=== PATIENT | female | born 1935 | race Hispanic/Latino ===

== ENCOUNTER 2021-12-09 12:16 | Inpatient (IN) | payer MEDICARE ==
--- NOTE | 2021-12-09 12:35 | Emergency Department Report ---
Blank Doc - Documentation Documentation: [facility] Consult Note # Demographics Consult Type: Acute Stroke Level 2 (4.5-24 hrs) Patient Location: Emergency Room First Name: Moni Last Name: Yuri Gender: Female Facility: [facility] Time of Initial Page ( Time): 12/09/2021, 11:53 Time of Return Call ( Time): 12/09/2021, 11:53 # HPI History: left arm numbness since around 0500 Context/Pre-existing conditions: deaf # Scores Time of exam and NIHSS ( Time): 12/09/2021, 11:55 Level of Consciousness 1a: [0] = Alert; keenly responsive LOC Questions 1b: [0] = Answers both questions correctly LOC Commands 1c: [0] = Performs both tasks correctly Best Gaze 2: [0] = Normal Visual 3: [0] = No visual loss Facial Palsy 4: [0] = Normal symmetrical movements Motor Arm Left 5a: [1] = Drift Motor Arm Right 5b: [0] = No drift Motor Leg Left 6a: [1] = Drift Motor Leg Right 6b: [0] = No drift Limb Ataxia 7: [0] = Absent Sensory 8: [0] = Normal Best Language 9: [0] = No aphasia Dysarthria 10: [1] = [id number] dysarthria Extinction and Inattention 11: [0] = No abnormality NIHSS Total: 3 # Exam SBP: 176 DBP: 102 # PMH-FH-SH Past Medical History: deaf # Data Glucose: within normal limits Head CT: no bleed preliminarily reviewed by me, please refer to radiology read for official reading # Assessment Impression: Ischemic Stroke (Acute) # Plan Thrombolytic/Intervention: NOT IV Thrombolysis or IA Intervention candidate Thrombolytic Exclusion: > 4.5 hours Intraarterial Exclusion: clinically consistent with small vessel disease Blood Pressure Management: nicardipine labetolol Target Blood Pressure: SBP < 220 DBP < 120 Labs: hemoglobin A1c lipid panel Imaging: (urgency: STAT): CT Angiogram Head and CT Angiogram Neck AND call back with results if abnormal Imaging: (urgency: routine): MRI Brain without contrast Diagnostic Test: echo without bubble study Therapy/Evaluation: NPO until swallow evaluation PT/OT evaluation speech/swallow consultation Medication: aspirin 81 mg daily start statin with goal of LDL < 70 DVT Prophylaxis: SCD Other: LDL < 70 If patient has any neurological deterioration please call me back immediately permissive hypertension telemetry monitoring I have discussed my recommendations with the referring provider # [employer] Telemedicine: Interactive 2 way audio and visual telecommunication technology was utilized during this visit
--- NOTE | 2021-12-09 12:37 | Emergency Department Report ---
ED Neuro Deficit HPI - General Chief Complaint: Neuro Symptoms/Deficit Stated Complaint: STROKE Time Seen by Provider: 12/09/21 12:27 Source: EMS Mode of arrival: Stretcher Limitations: Altered Mental Status, Physical Limitation - History of Present Illness Initial Comments: 86-year-old female with a history of Mnire's disease presents to the hospital with stroke symptoms. About 5 AM patient had left-sided numbness/weakness with unsteady gait. Her baseline patient is deaf and has unsteady gait secondary to Mnire's disease. Her daughter is at the bedside assisting with past medical history however, she and her sister have been estranged from her mother for the last 40+ years and have only recently connected 3 years ago. She does state davi t she noticed some mild slurred speech today. She is expresses concern that her mom might have early dementia and might not be of the care for herself and her 9 cats alone at home. No pain reported. - Related Data Home Medications: Home Medications Medication Instructions Recorded Confirmed Last Taken No Known Home Medications [No 12/10/21 12/10/21 Unknown Reported Home Medications] Allergies/Adverse Reactions: Allergies Allergy/AdvReac Type Severity Reaction Status Date / Time No Known Allergies Allergy Unverified 12/09/21 12:22 ED Review of Systems ROS: Stated complaint: STROKE Other details as noted in HPI Comment: All other systems reviewed and negative ED Past Medical Hx - Social History Smoking Status: Never Smoker Substance Use Type: None - Medications Home Medications: Home Medications Medication Instructions Recorded Confirmed Last Taken Type No Known Home Medications [No 12/10/21 12/10/21 Unknown History Reported Home Medications] ED Neuro Physical Exam - General Limitations: Altered Mental Status, Physical Limitation Suspected Stroke: Yes - NIHSS Assessment Interval: Baseline 1a. Level of Consciousness: alert/keenly responsive 1b. LOC Questions: answers both correctly 1c. LOC Commands: performs tasks correctly 2. Best Gaze: normal 3. Visual: no visual loss 4. Facial Palsy: normal symmetrical movement 5b. Motor Arm Right: drift 5a. Motor Arm Left: no drift 6a. Motor Leg Left: no drift 6b. Motor Leg Right: drift 7. Limb Ataxia: absent 8. Sensory: normal 9. Best Language: no aphasia 10. Dysarthria: mild/moderate dysarthria 11. Extinction/Inattention: no abnormality Total Score: 3 Stroke Severity: Minor Stroke - Other Other exam information: General: No acute distress Head: Atraumatic Eyes: normal appearance ENT: Moist mucous membranes Neck: Normal appearance, no midline tenderness Chest: Clear to auscultation bilaterally CV: Regular rate and rhythm Abdomen: Soft, normal bowel sounds, nontender, nondistended, no rebound or guarding Back: Normal inspection Extremity: Normal inspection, full range of motion Neuro: Alert O x 3, as per NIH stroke scale Psych: Appropriate behavior Skin: No rash ED Course Vital Signs 12/09/21 12/09/21 12/09/21 12:59 13:00 13:15 Temperature Pulse Rate 73 Respiratory 14 Rate Blood Pressure 142/79 142/79 Blood Pressure [Left] O2 Sat by Pulse 99 99 98 Oximetry 12/09/21 12/09/21 12/09/21 13:16 13:31 13:45 Temperature Pulse Rate 72 73 Respiratory 10 L 11 L Rate Blood Pressure 145/76 145/76 Blood Pressure 142/79 [Left] O2 Sat by Pulse 100 99 100 Oximetry 12/09/21 12/09/21 12/09/21 14:01 14:15 14:21 Temperature 98.1 F Pulse Rate 71 69 68 Respiratory 13 12 14 Rate Blood Pressure 128/86 128/86 62/36 Blood Pressure 128/86 [Left] O2 Sat by Pulse 100 100 98 Oximetry 12/09/21 12/09/21 12/09/21 14:23 14:25 14:27 Temperature Pulse Rate 70 69 68 Respiratory 8 L 16 14 Rate Blood Pressure 62/36 62/36 62/36 Blood Pressure [Left] O2 Sat by Pulse 98 97 98 Oximetry 12/09/21 12/09/21 12/09/21 14:29 14:31 14:33 Temperature Pulse Rate 71 73 72 Respiratory 12 9 L 9 L Rate Blood Pressure 62/36 62/36 167/83 Blood Pressure [Left] O2 Sat by Pulse 98 99 99 Oximetry 12/09/21 12/09/21 12/09/21 14:35 14:37 14:39 Temperature Pulse Rate 70 72 72 Respiratory 9 L 10 L 11 L Rate Blood Pressure 167/83 167/83 167/83 Blood Pressure [Left] O2 Sat by Pulse 99 99 100 Oximetry 12/09/21 12/09/21 12/09/21 14:41 14:43 15:37 Temperature Pulse Rate 68 71 81 Respiratory 16 10 L 19 Rate Blood Pressure 167/83 167/83 142/85 Blood Pressure [Left] O2 Sat by Pulse 99 100 100 Oximetry 12/09/21 12/09/21 12/09/21 15:39 15:41 15:43 Temperature Pulse Rate 84 87 86 Respiratory 15 16 12 Rate Blood Pressure 142/85 142/85 142/85 Blood Pressure [Left] O2 Sat by Pulse 99 100 100 Oximetry 12/09/21 12/09/21 12/09/21 15:45 15:47 15:49 Temperature Pulse Rate 80 76 77 Respiratory 15 8 L 16 Rate Blood Pressure 142/85 137/86 137/86 Blood Pressure [Left] O2 Sat by Pulse 99 99 98 Oximetry 12/09/21 12/09/21 12/09/21 15:51 15:53 15:55 Temperature Pulse Rate 77 77 76 Respiratory 12 9 L 13 Rate Blood Pressure 137/86 137/86 137/86 Blood Pressure [Left] O2 Sat by Pulse 99 99 99 Oximetry 12/09/21 12/09/21 12/09/21 15:57 15:58 16:00 Temperature Pulse Rate 76 79 77 Respiratory 13 14 15 Rate Blood Pressure 137/86 137/86 142/85 Blood Pressure [Left] O2 Sat by Pulse 100 99 Oximetry 12/09/21 12/09/21 12/09/21 16:01 16:02 16:04 Temperature Pulse Rate 73 74 77 Respiratory 10 L 13 11 L Rate Blood Pressure 137/86 137/86 137/86 Blood Pressure [Left] O2 Sat by Pulse 100 98 96 Oximetry 12/09/21 12/09/21 12/09/21 16:06 16:08 16:10 Temperature Pulse Rate 75 75 73 Respiratory 11 L 13 11 L Rate Blood Pressure 137/86 137/86 137/86 Blood Pressure [Left] O2 Sat by Pulse 99 99 99 Oximetry 12/09/21 12/09/21 12/09/21 16:39 16:41 16:43 Temperature Pulse Rate 77 68 85 Respiratory 10 L 13 12 Rate Blood Pressure 137/86 137/86 137/86 Blood Pressure [Left] O2 Sat by Pulse 100 100 100 Oximetry 12/09/21 12/09/21 12/09/21 16:45 16:47 16:49 Temperature Pulse Rate 79 79 71 Respiratory 11 L 13 11 L Rate Blood Pressure 137/86 137/86 176/113 Blood Pressure [Left] O2 Sat by Pulse 100 100 100 Oximetry 12/09/21 12/09/21 12/09/21 16:51 16:53 16:55 Temperature Pulse Rate 67 72 63 Respiratory 16 13 17 Rate Blood Pressure 176/113 176/113 176/113 Blood Pressure [Left] O2 Sat by Pulse 100 100 100 Oximetry 12/09/21 12/09/21 12/09/21 16:57 16:59 17:01 Temperature Pulse Rate 72 65 83 Respiratory 10 L 17 10 L Rate Blood Pressure 176/113 176/113 176/113 Blood Pressure [Left] O2 Sat by Pulse 100 100 100 Oximetry 12/09/21 12/09/21 12/09/21 17:03 17:05 17:07 Temperature Pulse Rate 70 71 65 Respiratory 21 10 L 8 L Rate Blood Pressure 176/113 176/113 176/113 Blood Pressure [Left] O2 Sat by Pulse 100 100 100 Oximetry 12/09/21 12/09/21 12/09/21 17:09 17:11 17:13 Temperature Pulse Rate 72 69 75 Respiratory 14 11 L 18 Rate Blood Pressure 176/113 176/113 176/113 Blood Pressure [Left] O2 Sat by Pulse 100 100 100 Oximetry 12/09/21 12/09/21 12/09/21 17:15 17:17 17:18 Temperature Pulse Rate 73 72 66 Respiratory 10 L 17 14 Rate Blood Pressure 176/113 137/86 130/80 Blood Pressure [Left] O2 Sat by Pulse 100 99 100 Oximetry 12/09/21 12/09/21 12/09/21 17:19 17:21 17:23 Temperature Pulse Rate 71 71 75 Respiratory 16 13 14 Rate Blood Pressure 130/80 130/80 130/80 Blood Pressure [Left] O2 Sat by Pulse 100 100 100 Oximetry 12/09/21 12/09/21 12/09/21 17:25 17:27 17:29 Temperature Pulse Rate 71 65 76 Respiratory 13 13 10 L Rate Blood Pressure 130/80 130/80 130/80 Blood Pressure [Left] O2 Sat by Pulse 99 100 99 Oximetry 12/09/21 12/09/21 12/09/21 17:31 17:33 17:35 Temperature Pulse Rate 77 72 73 Respiratory 12 15 18 Rate Blood Pressure 130/80 130/80 130/80 Blood Pressure [Left] O2 Sat by Pulse 100 99 99 Oximetry 12/09/21 12/09/21 12/09/21 17:37 17:39 17:41 Temperature Pulse Rate 75 74 79 Respiratory 15 12 10 L Rate Blood Pressure 130/80 130/80 130/80 Blood Pressure [Left] O2 Sat by Pulse 100 99 99 Oximetry 12/09/21 12/09/21 12/09/21 17:43 17:45 17:47 Temperature Pulse Rate 76 68 76 Respiratory 10 L 15 14 Rate Blood Pressure 130/80 130/80 130/80 Blood Pressure [Left] O2 Sat by Pulse 99 99 99 Oximetry 12/09/21 12/09/21 17:51 18:01 Temperature Pulse Rate 80 77 Respiratory 14 14 Rate Blood Pressure 145/88 145/88 Blood Pressure [Left] O2 Sat by Pulse 99 97 Oximetry - Lab Data Result diagrams: 12/09/21 12:43 12/09/21 12:43 Lab Results 12/09/21 12/09/21 12/09/21 Range/Units 12:43 12:43 12:43 WBC 6.7 (4.5-11.0) K/mm3 RBC 4.36 (3.65-5.03) M/mm3 Hgb 14.4 H (10.1-14.3) gm/dl Hct 41.0 (30.3-42.9) % MCV 94 (79-97) fl MCH 33 H (28-32) pg MCHC 35 H (30-34) % RDW 13.8 (13.2-15.2) % Plt Count 238 (140-440) K/mm3 Lymph % (Auto) 19.1 (13.4-35.0) % [place] % (Auto) 9.6 H (0.0-7.3) % Eos % (Auto) 1.0 (0.0-4.3) % Baso % (Auto) 0.6 (0.0-1.8) % Lymph # (Auto) 1.3 (1.2-5.4) K/mm3 [place] # (Auto) 0.6 (0.0-0.8) K/mm3 Eos # (Auto) 0.1 (0.0-0.4) K/mm3 Baso # (Auto) 0.0 (0.0-0.1) K/mm3 Seg Neutrophils % 69.7 (40.0-70.0) % Seg Neutrophils # 4.7 (1.8-7.7) K/mm3 PT 13.8 (12.2-14.9) Sec. INR 0.96 (0.87-1.13) APTT 29.6 (24.2-36.6) Sec. Thrombin Time 17.3 (15.1-19.6) Sec. Sodium 143 (137-145) mmol/L Potassium 3.1 L (3.6-5.0) mmol/L Chloride 108.2 H (98-107) mmol/L Carbon Dioxide 23 (22-30) mmol/L Anion Gap 15 mmol/L BUN 15 (7-17) mg/dL Creatinine 0.6 (0.6-1.2) mg/dL Estimated GFR > 60 ml/min BUN/Creatinine Ratio 25 % Glucose 92 (65-100) mg/dL Calcium 9.0 (8.4-10.2) mg/dL Total Bilirubin 0.40 (0.1-1.2) mg/dL AST 13 (5-40) units/L ALT 8 (7-56) units/L Alkaline Phosphatase 78 (35-129) units/L Total Creatine Kinase 53 (30-135) units/L CK-MB (CK-2) 3.4 (0.0-4.0) ng/mL CK-MB (CK-2) Rel Index 6.4 H (0-4) Troponin T < 0.010 (0.00-0.029) ng/mL Total Protein 6.3 (6.3-8.2) g/dL Albumin 4.1 (3.9-5) g/dL Albumin/Globulin Ratio 1.9 % Urine Color (Yellow) Urine Turbidity (Clear) Urine pH (5.0-7.0) Ur Specific [place] (1.003-1.030) Urine Protein (Negative) mg/dL Urine Glucose (UA) (Negative) mg/dL Urine Ketones (Negative) mg/dL Urine Blood (Negative) Urine Nitrite (Negative) Ur Reducing Substances Urine Bilirubin (Negative) Urine Ictotest Urine Urobilinogen (<2.0) mg/dL Ur Leukocyte Esterase (Negative) Urine WBC (Auto) (0.0-6.0) /HPF Urine RBC (Auto) (0.0-6.0) /HPF 07/08/22 Range/Units 13:54 WBC (4.5-11.0) K/mm3 RBC (3.65-5.03) M/mm3 Hgb (10.1-14.3) gm/dl Hct (30.3-42.9) % MCV (79-97) fl MCH (28-32) pg MCHC (30-34) % RDW (13.2-15.2) % Plt Count (140-440) K/mm3 Lymph % (Auto) (13.4-35.0) % [place] % (Auto) (0.0-7.3) % Eos % (Auto) (0.0-4.3) % Baso % (Auto) (0.0-1.8) % Lymph # (Auto) (1.2-5.4) K/mm3 [place] # (Auto) (0.0-0.8) K/mm3 Eos # (Auto) (0.0-0.4) K/mm3 Baso # (Auto) (0.0-0.1) K/mm3 Seg Neutrophils % (40.0-70.0) % Seg Neutrophils # (1.8-7.7) K/mm3 PT (12.2-14.9) Sec. INR (0.87-1.13) APTT (24.2-36.6) Sec. Thrombin Time (15.1-19.6) Sec. Sodium (137-145) mmol/L Potassium (3.6-5.0) mmol/L Chloride (98-107) mmol/L Carbon Dioxide (22-30) mmol/L Anion Gap mmol/L BUN (7-17) mg/dL Creatinine (0.6-1.2) mg/dL Estimated GFR ml/min BUN/Creatinine Ratio % Glucose (65-100) mg/dL Calcium (8.4-10.2) mg/dL Total Bilirubin (0.1-1.2) mg/dL AST (5-40) units/L ALT (7-56) units/L Alkaline Phosphatase (35-129) units/L Total Creatine Kinase (30-135) units/L CK-MB (CK-2) (0.0-4.0) ng/mL CK-MB (CK-2) Rel Index (0-4) Troponin T (0.00-0.029) ng/mL Total Protein (6.3-8.2) g/dL Albumin (3.9-5) g/dL Albumin/Globulin Ratio % Urine Color Yellow (Yellow) Urine Turbidity Clear (Clear) Urine pH 8.0 H (5.0-7.0) Ur Specific [place] 1.005 (1.003-1.030) Urine Protein <15 mg/dl (Negative) mg/dL Urine Glucose (UA) Negative (Negative) mg/dL Urine Ketones Negative (Negative) mg/dL Urine Blood Trace (Negative) Urine Nitrite Negative (Negative) Ur Reducing Substances Not Reportable Urine Bilirubin Negative (Negative) Urine Ictotest Not Reportable Urine Urobilinogen < 2.0 (<2.0) mg/dL Ur Leukocyte Esterase Negative (Negative) Urine WBC (Auto) < 1.0 (0.0-6.0) /HPF Urine RBC (Auto) < 1.0 (0.0-6.0) /HPF - EKG Data -: EKG Interpreted by Pr EKG shows normal: sinus rhythm, ST-T waves (No STEMI) Rate: normal - Radiology Data Radiology results: report reviewed CT head/brain wo con INDICATION / CLINICAL INFORMATION: 86 years Female; CODE STOKE [id number], AMS. TECHNIQUE: Routine CT head without contrast. All CT scans at this location are performed using CT dose reduction for ALARA by means of automated exposure control. COMPARISON: The study is compared to previous CT of 02/08/2018. FINDINGS: BRAIN / INTRACRANIAL CONTENTS: There is extensive cerebral white matter disease most consistent with microvascular angiopathy at. There is moderate cerebral atrophy with associated prominence of the ventricular system. There is no clear CT evidence of acute intracranial hemorrhage or significant mass effect. ORBITS: No significant abnormality of visualized orbits. SINUSES / MASTOIDS: This mild mucosal thickening along the inferior left maxillary sinus. 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 CRANIOCERVICAL JUNCTION: No significant abnormality. ADDITIONAL FINDINGS: None. IMPRESSION: 1. There is extensive microvascular angiopathy and moderate cerebral atrophy as described without CT evidence of acute intracranial hemorrhage. CT angio neck INDICATION / CLINICAL INFORMATION: 86 years Female; CODE STOKE [id number] AMS, 100ML OF OMIN[place]QUE 350 GIVEN. TECHNIQUE: Thin cut axial images obtained through the head during IV bolus contrast administration. Sagittal, coronal, and 3 plane MIP reconstructions performed by the technologist. NASCET type criteria used evaluate stenoses. All CT scans at this location are performed using CT dose reduction for ALARA by means of automated exposure control. COMPARISON: None available. FINDINGS: CAROTID ARTERIES: There is irregular calcified plaque involving proximal right ICA.. The motion and beam hardening degrade the image quality at. However, there appears be mild approximately 20% stenosis along the distal right carotid bulb. There are foci of atherosclerotic calcification involving proximal left ICA without significant stenosis. The common carotid arteries appear unremarkable. VERTEBRAL ARTERIES: There is a focus of calcification adjacent to the origin of the right vertebral artery. However, the vertebral arteries demonstrate appropriate caliber bilaterally without significant focal narrowing at. ARCH: There is atherosclerotic calcification involving aortic arch. However, there is no significant narrowing of the origins of the arch vessels at. ADDITIONAL FINDINGS: Remainder of the surrounding soft tissues are grossly normal. IMPRESSION: There is atherosclerotic calcification involving the proximal ICAs with mild, approximately 20% narrowing of the distal right carotid bulb as detailed above. cta head report reviewed - Medical Decision Making 86-year-old female who received code stroke assessment by neurologist for stroke symptoms. Patient have left-sided weakness/numbness since 5 AM. Outside of window for tPA. Imaging test obtained. No signs of hemorrhage or large vessel occlusion. Mild hypokalemia noted patient will be admitted to the hospitalist. Case discussed with Dr. Mena - Thrombolytic Inclusion/Exclusion Thrombolytic Exclusion Criteria: Symptom Onset > 3 Hours Critical Care Time: No Critical care attestation.: If time is entered above; I have spent that time in minutes in the direct care of this critically ill patient, excluding procedure time. ED Disposition Clinical Impression: Left arm numbness, Left-sided weakness, Deaf, History of Meniere's disease, Slurred speech Disposition: ADMITTED INPATIENT Is pt being admited?: Yes Does the pt Need Aspirin: No Condition: Stable Time of Disposition: 15:24
[2021-12-09 13:53] LABS: Basophils % (Auto) 0.6 % (0.0-1.8); Eosinophils # (Auto) 0.1 K/mm3 (0.0-0.4); Hemoglobin 14.4 gm/dl (10.1-14.3); Lymphocytes # (Auto) 1.3 K/mm3 (1.2-5.4); Lymphocytes % (Auto) 19.1 % (13.4-35.0); Mean Corpuscular HGB Conc 35 % (30-34); Mean Corpuscular Volume 94 fl (79-97); Monocytes # (Auto) 0.6 K/mm3 (0.0-0.8); Monocytes % (Auto) 9.6 % (0.0-7.3); Platelet Count 238 K/mm3 (140-440); Red Blood Count 4.36 M/mm3 (3.65-5.03); Red Cell Distribution Width 13.8 % (13.2-15.2)
--- NOTE | 2021-12-09 14:02 | Cat Scan Report ---
CT head/brain wo con INDICATION / CLINICAL INFORMATION: 86 years Female; CODE PRISCILLA [id number], AMS. TECHNIQUE: Routine CT head without contrast. All CT scans at this location are performed using CT dos e reduction for ALARA by means of automated exposure control. COMPARISON: The study is compared to previous CT of 02/08/2018. FINDINGS: BRAIN / INTRACRANIAL CONTENTS: There is extensive cerebral white matter disease most consistent with microvascular angiopathy at. There is moderate cerebral atrophy with associated prominence of the ronnie tricular system. There is no clear CT evidence of acute intracranial hemorrhage or significant mass e ffect. ORBITS: No significant abnormality of visualized orbits. SINUSES / MASTOIDS: This mild mucosal thickening along the inferior left maxillary sinus. There is co ntinued bony lesion along the nasal septum measuring approximately 7 mm transversely which is unchang ed from 02/08/2018 and indicative of osteoma. CRANIOCERVICAL JUNCTION: No significant abnormality. ADDITIONAL FINDINGS: None. IMPRESSION: 1. There is extensive microvascular angiopathy and moderate cerebral atrophy as described without CT evidence of acute intracranial hemorrhage. The study was specified as code stroke and called emergently to Dr. Giordano in the ER at 12:54 PM [facility] standard time. Signer Name: Jose Camacho MD Signed: 12/09/2021 1:58 PM Workstation Name: [id number]
[2021-12-09 14:07] LABS: INR 0.96 (0.87-1.13)
--- NOTE | 2021-12-09 14:07 | Cat Scan Report ---
CT angio neck INDICATION / CLINICAL INFORMATION: 86 years Female; CODE PRISCILLA [id number] AMS, 100ML OF OMIN[place] 350 GIVEN. TECHNIQUE: Thin cut axial images obtained through the head during IV bolus contrast administration. S agittal, coronal, and 3 plane MIP reconstructions performed by the technologist. NASCET type criteria used evaluate stenoses. All CT scans at this location are performed using CT dose reduction for ALAR A by means of automated exposure control. COMPARISON: None available. FINDINGS: CAROTID ARTERIES: There is irregular calcified plaque involving proximal right ICA.. The motion and b eam hardening degrade the image quality at. However, there appears be mild approximately 20% stenosis along the distal right carotid bulb. There are foci of atherosclerotic calcification involving proximal left ICA without significant steno sis. The common carotid arteries appear unremarkable. VERTEBRAL ARTERIES: There is a focus of calcification adjacent to the origin of the right vertebral a rtery. However, the vertebral arteries demonstrate appropriate caliber bilaterally without significan t focal narrowing at. ARCH: There is atherosclerotic calcification involving aortic arch. However, there is no significant narrowing of the origins of the arch vessels at. ADDITIONAL FINDINGS: Remainder of the surrounding soft tissues are grossly normal. IMPRESSION: There is atherosclerotic calcification involving the proximal ICAs with mild, approximately 20% narro wing of the distal right carotid bulb as detailed above. Signer Name: Jose Camacho MD Signed: 12/09/2021 2:03 PM Workstation Name: [id number]
[2021-12-09 14:08] LABS: Partial Thromboplastin Time 29.6 Sec. (24.2-36.6); Thrombin Time 17.3 Sec. (15.1-19.6)
[2021-12-09 14:17] LABS: Creatine Kinase MB 3.4 ng/mL (0.0-4.0)
[2021-12-09 14:18] LABS: Alanine Aminotransferase 8 units/L (7-56); Albumin 4.1 g/dL (3.9-5); Blood Urea Nitrogen 15 mg/dL (7-17); Hemolysis Index 4
[2021-12-09 14:49] LABS: BUN/Creatinine Ratio 25
--- NOTE | 2021-12-09 15:21 | Cat Scan Report ---
CTA HEAD WITH CONTRAST HISTORY: Stroke COMPARISON: None. TECHNIQUE: Routine non-contrast CT Head, CTA of the head and post-contrast CT Head are performed. 3-D /MIP reformats postprocessed. All CT scans at this location are performed using CT dose reduction for ALARA by means of automated exposure control CONTRAST: 100 ml of Omnipaque 350 FINDINGS: CTA Head: Intracranial vertebral arteries: No significant abnormality. Basilar artery: No significant abnormality. Posterior cerebral arteries: Minimal narrowing at the right P2 segment; left posterior cerebral arter y normal Intracranial internal carotid arteries: No significant abnormality. Anterior cerebral arteries: No significant abnormality. Middle cerebral arteries: No significant abnormality. Dural venous sinuses:Not optimally opacified. No significant abnormality. Additional findings: None. IMPRESSION: 1. No significant abnormality. Signer Name: Gregg Murdock MD Signed: 12/09/2021 3:16 PM Workstation Name: [email or web address]
[2021-12-09] MEDS ORDERED: ONDANSETRON 4 MG/2 ML INJ IV PRN (15:25)
[2021-12-09] MEDS ORDERED: PROMETHAZINE 25 MG RECT SUPP PR PRN (15:25)
[2021-12-09] MEDS ORDERED: ACETAMINOPHEN 325 MG TAB PO PRN (15:25)
[2021-12-09] MEDS ORDERED: MAGNESIUM HYDROXIDE (MOM) ORAL LIQD UDC PO PRN (15:25)
[2021-12-09] MEDS ORDERED: METOCLOPRAMIDE 10 MG TAB PO PRN (15:25)
[2021-12-09] MEDS ORDERED: oxyCODONE /ACETAMINOPHEN 5-325MG TAB PO PRN (15:25)
[2021-12-09] MEDS ORDERED: HYDROmorphone 0.5 MG/0.5 ML INJ IV PRN (15:25)
[2021-12-09] MEDS ORDERED: ALBUTEROL 2.5 MG/3 ML NEBU IH PRN (15:25)
--- NOTE | 2021-12-09 15:25 | History and Physical Report ---
History of Present Illness Chief complaint: Her speech is slurred History of present illness: 86 YO Female with Vascular Dementia, Cerebral Atherosclerosis, Mnire's disease, Deafness presents to ED for evaluation. Patient is confused with diminished cognition at the time my evaluation is unable to provide detailed history. Patient is provided by EMS staff, ED staff, as well as patient daughter was at bedside and interview. As per daughter the patient was found to have slurred speech and confusion today. EMS was notified and upon arrival the patient was found to be in distress with a focal neurologic deficit. A code stroke was called and the patient was transported to [facility] for further care and evaluation of the aforementioned symptoms. The patient was seen and evaluated in the emergency department. All lab and imaging studies reviewed. Patient found to have clinical symptoms consistent with CVA. The patient was admitted to medical floor due to increased risk of medical decompensation and for medical stabilization. Patient initiated on CVA protocol. No reports of fever, chills, chest pain, palpitation, productive cough, skin rash, recent contact, no supportive COVID-19. No prior admission for review. No medication listed at time of admission for reconciliation. Advanced care planning conducted in ED. patient has diminished cognition at time of evaluation but has a positive gag reflex and is able to protect her airway without difficulty. Past History Past Medical History: other (See HPI) Past Surgical History: No surgical history, Other (Reviewed) Social history: . denies: smoking, alcohol abuse Family history: no significant family history, other (Reviewed) Medications and Allergies Allergies Allergy/AdvReac Type Severity Reaction Status Date / Time No Known Allergies Allergy Unverified 12/09/21 12:22 Review of Systems ROS unobtainable: due to mental status Exam - Constitutional Vitals: Temp Pulse Resp BP Pulse Ox 98.1 F 71 10 L 167/83 100 12/09/21 14:21 12/09/21 14:43 12/09/21 14:43 12/09/21 14:43 12/09/21 14:43 General appearance: Present: mild distress - EENT Eyes: Present: PERRL ENT: clear oral mucosa, hearing decreased - Neck Neck: Present: supple, normal ROM - Respiratory Respiratory effort: normal Respiratory: bilateral: CTA - Cardiovascular Rhythm: regular Heart Sounds: Present: S1 & S2 - Extremities Extremities: pulses symmetrical, No edema Peripheral Pulses: within normal limits - Abdominal General gastrointestinal: Present: soft, non-tender, non-distended - Integumentary Integumentary: Present: clear, dry - Musculoskeletal Musculoskeletal: generalized weakness - Psychiatric Psychiatric: no appropriate mood/affect, no intact judgment & insight, no memory intact - Neurologic Neurologic: CNII-XII intact, no focal deficits, moves all extremities, no gait normal HEART Score - HEART Score Troponin: Troponin T < 0.010 ng/mL (0.00-0.029) 12/09/21 12:43 Results - Labs CBC & Chem 7: 12/09/21 12:43 12/09/21 12:43 Labs: Abnormal lab results 12/09/21 12/09/21 Range/Units 12:43 12:43 Hgb 14.4 H (10.1-14.3) gm/dl MCH 33 H (28-32) pg MCHC 35 H (30-34) % [place] % (Auto) 9.6 H (0.0-7.3) % Potassium 3.1 L (3.6-5.0) mmol/L Chloride 108.2 H (98-107) mmol/L CK-MB (CK-2) Rel Index 6.4 H (0-4) Assessment and Plan - Patient Problems (1) CVA (cerebral vascular accident) Current Visit: No Status: Acute Qualifiers: Precerebral and cerebral artery: posterior cerebral artery Plan to address problem: CVA protocol: CT head, neuro check, seizure precautions, physical therapy consulted, Occupational Therapy consulted, speech therapy consulted on antiplatelet therapy, statin therapy, lipid panel, telemetry neurology consulted. Echocardiogram, carotid Doppler. (2) Debility Current Visit: Yes Status: Acute Plan to address problem: Physical therapy consulted. (3) History of Meniere's disease Current Visit: No Status: Acute Plan to address problem: Continue medical management, supportive care. Outpatient neurology follow-up. (4) DVT prophylaxis Current Visit: No Status: Acute Plan to address problem: SCD to bilateral lower extremities while in bed (5) Advance care planning Current Visit: Yes Status: Acute Plan to address problem: Disease education conducted, care plan discussed, diagnoses discussed, prognosis discussed, patient is full code. Patient family knowledges understanding and agreement with care plan, +30 minutes. (6) Preventative health care Current Visit: Yes Status: Acute Plan to address problem: Home safety discussed, patient family instructed to follow-up with primary care physician regarding all age and risk factor appropriate screening test. +30 minutes.
[2021-12-09 15:29] LABS: RBC,Urine < 1.0 /HPF (0.0-6.0); WBC,Urine < 1.0 /HPF (0.0-6.0)
[2021-12-09 16:25] LABS: Bilirubin,Urine Negative (Negative); Blood,Urine Trace (Negative); Color,Urine Yellow (Yellow)
[2021-12-09 16:26] LABS: Protein,Urine <15 mg/dL mg/dL (Negative); Urobilinogen,Urine < 2.0 mg/dL (<2.0)
--- NOTE | 2021-12-09 16:57 | Vascular Lab Report ---
DUPLEX DOPPLER ULTRASOUND CAROTID, BILATERAL INDICATION / CLINICAL INFORMATION: stroke. COMPARISON: None available. FINDINGS: RIGHT CAROTID: [id number] plaque - PLAQUE ESTIMATE (%): < 50% - CCA velocity: 62 cm/sec. - ICA peak systolic velocity: 99 cm/sec. - ICA/CCA PSV Ratio: 1.6 Right Vertebral Artery: Antegrade flow. LEFT CAROTID: Mild plaque - PLAQUE ESTIMATE: < 50% - CCA velocity: 60 cm/sec. - ICA peak systolic velocity: 86 cm/sec. - ICA/CCA PSV Ratio: 1.4 Left Vertebral Artery: Antegrade flow. IMPRESSION: 1. Right Internal Carotid Artery: Less than 50% diameter stenosis. 2. Left Internal Carotid Artery: Less than 50% diameter stenosis. Calcified and noncalcified plaque in bilateral carotid arteries Velocity criteria are extrapolated from diameter data as defined by the Society of Radiologists in Ul trasound Consensus Conference, Radiology 2003; 229;340-346. NO STENOSIS (NORMAL) * Plaque = none; ICA PSV < 125 cm/sec; ICA/CCA PSV Ratio < 2.0 <50% STENOSIS * Plaque < 50%; ICA PSV < 125 cm/sec; ICA/CCA PSV Ratio < 2.0 50-69% STENOSIS * Plaque > 50%; ICA PSV = 125-230 cm/sec; ICA/CCA PSV Ratio = 2.0-4.0 >70% BUT <100% STENOSIS * Plaque > 50%; ICA PSV > 230 cm/sec; ICA/CCA PSV Ratio > 4.0 NEAR OCCLUSION * Plaque = visible lumen; ICA PSV = high/low/none; ICA/CCA PSV Ratio = variable TOTAL OCCLUSION * Plaque = no lumen; ICA PSV = none; ICA/CCA PSV Ratio = N/A Signer Name: Thomas Iglesias MD Signed: 12/09/2021 4:52 PM Workstation Name: [id number]
[2021-12-10] MEDS ORDERED: hydrALAZINE 20 MG/1 ML INJ IV ONE (03:47)
--- NOTE | 2021-12-10 04:26 | Cat Scan Report ---
NONENHANCED CT SCAN OF THE HEAD: INDICATION / CLINICAL INFORMATION: 86 years Female; s/p fall r/o bleed. TECHNIQUE: Routine CT head without contrast. All CT scans at this location are performed using CT dos e reduction for ALARA by means of automated exposure control. COMPARISON: CT scan of the head from 12/09/2021 12:28 PM FINDINGS: BRAIN / INTRACRANIAL CONTENTS: No intracerebral hemorrhage or stroke mimics; no intracranial sequela from the trauma; no scalp hematoma; no fluid level in the paranasal sinuses No acute hemorrhage, mass effect, midline shift, hydrocephalus, or acute, large territorial infarct. No chronic infarct or focal atrophy. Normal brain volume and ventricular/sulcal size for age. Conflu ent periventricular low-attenuation areas due to chronic small vessel disease; unchanged CRANIOCERVICAL JUNCTION: No significant abnormality. ORBITS: No significant abnormality of visualized orbits. SINUSES / MASTOIDS: No significant abnormality of the visualized paranasal sinuses or mastoid air brook ls. 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 IMPRESSION: Intracerebral hemorrhage or stroke mimics No intracranial sequela from the trauma No acute parenchymal lesion since the recent CT scan Signer Name: Gregg Murdock MD Signed: 12/10/2021 4:21 AM Workstation Name: [id number]
[2021-12-10 06:29] LABS: Chol/HDL Ratio 3.56 %
[2021-12-10] MEDS: ASPIRIN 325 MG TAB PO SCH (10:45)
--- NOTE | 2021-12-10 13:28 | Progress Note ---
Assessment and Plan Assessment and plan: #CVA (cerebral vascular accident) vs TIA rule out -initial CT head negative; repeat CT head negative -CTA of neck negative; CTA of head shows athlerosclerosis -MRI head, TTE, and carotid doppler pending -patient with no significant medical issues; noted to have elevated BP will star t HCTZ 12.5mg qday -continue ASA + statin -continue neuro checks -PT/OT evaluation pending #Debility -Physical therapy consulted -Family plans for the patient to move in with them at discharge for closer observation #History of Meniere's disease -not in exacerbation, supportive care -patient with deafness, but able to read lips and communicate through writing -Outpatient neurology follow-up #Advanced care planning -Disease education conducted, care plan discussed, diagnoses discussed, prognosis discussed, patient is full code. Patient family knowledges understanding and agreement with care plan, +30 minutes. History Interval history: Patient got out of the bed and was found on the floor this morning by family. Repeat CT head was negative for acute findings. Communicated with patient via whiteboard and through daughter at bedside. Patient currently has no symptoms and has had improvement in her left hand strength. Hospitalist Physical - Physical exam Narrative exam: GENERAL: Well-developed well-nourished. In no acute distress. HEENT: Normocephalic. Atraumatic. NECK: Supple. CHEST/LUNGS: CTAB on room air HEART/CARDIOVASCULAR: RRR. No murmur, rubs or gallops appreciated. ABDOMEN: +BS. NT/ND. SKIN: No rashes noted. NEURO: No focal motor deficit. Follows all commands. MUSCULOSKELETAL: No joint effusion EXTREMITIES: No cyanosis, clubbing or edema. PSYCH: Cooperative. - Constitutional Vitals: Temp Pulse Resp BP Pulse Ox 98.0 F 81 16 116/82 98 12/10/21 11:56 12/10/21 11:56 12/10/21 11:56 12/10/21 11:56 12/10/21 11:56 General appearance: Present: mild distress HEART Score - HEART Score Troponin: Troponin T < 0.010 ng/mL (0.00-0.029) 12/09/21 12:43 Results - Labs CBC & Chem 7: 12/09/21 12:43 12/09/21 12:43 Labs: Laboratory Last Values WBC 6.7 K/mm3 (4.5-11.0) 12/09/21 12:43 RBC 4.36 M/mm3 (3.65-5.03) 12/09/21 12:43 Hgb 14.4 gm/dl (10.1-14.3) H 12/09/21 12:43 Hct 41.0 % (30.3-42.9) 12/09/21 12:43 MCV 94 fl (79-97) 12/09/21 12:43 MCH 33 pg (28-32) H 12/09/21 12:43 MCHC 35 % (30-34) H 12/09/21 12:43 RDW 13.8 % (13.2-15.2) 12/09/21 12:43 Plt Count 238 K/mm3 (140-440) 12/09/21 12:43 Lymph % (Auto) 19.1 % (13.4-35.0) 12/09/21 12:43 [place] % (Auto) 9.6 % (0.0-7.3) H 12/09/21 12:43 Eos % (Auto) 1.0 % (0.0-4.3) 12/09/21 12:43 Baso % (Auto) 0.6 % (0.0-1.8) 12/09/21 12:43 Lymph # (Auto) 1.3 K/mm3 (1.2-5.4) 12/09/21 12:43 [place] # (Auto) 0.6 K/mm3 (0.0-0.8) 12/09/21 12:43 Eos # (Auto) 0.1 K/mm3 (0.0-0.4) 12/09/21 12:43 Baso # (Auto) 0.0 K/mm3 (0.0-0.1) 12/09/21 12:43 Seg Neutrophils % 69.7 % (40.0-70.0) 12/09/21 12:43 Seg Neutrophils # 4.7 K/mm3 (1.8-7.7) 12/09/21 12:43 PT 13.8 Sec. (12.2-14.9) 12/09/21 12:43 INR 0.96 (0.87-1.13) 12/09/21 12:43 APTT 29.6 Sec. (24.2-36.6) 12/09/21 12:43 Thrombin Time 17.3 Sec. (15.1-19.6) 12/09/21 12:43 Sodium 143 mmol/L (137-145) 12/09/21 12:43 Potassium 3.1 mmol/L (3.6-5.0) L 12/09/21 12:43 Chloride 108.2 mmol/L (98-107) H 12/09/21 12:43 Carbon Dioxide 23 mmol/L (22-30) 12/09/21 12:43 Anion Gap 15 mmol/L 12/09/21 12:43 BUN 15 mg/dL (7-17) 12/09/21 12:43 Creatinine 0.6 mg/dL (0.6-1.2) 12/09/21 12:43 Estimated GFR > 60 ml/min 12/09/21 12:43 BUN/Creatinine Ratio 25 % 12/09/21 12:43 Glucose 92 mg/dL (65-100) 12/09/21 12:43 Calcium 9.0 mg/dL (8.4-10.2) 12/09/21 12:43 Total Bilirubin 0.40 mg/dL (0.1-1.2) 12/09/21 12:43 AST 13 units/L (5-40) 12/09/21 12:43 ALT 8 units/L (7-56) 12/09/21 12:43 Alkaline Phosphatase 78 units/L (35-129) 12/09/21 12:43 Total Creatine Kinase 53 units/L (30-135) 12/09/21 12:43 CK-MB (CK-2) 3.4 ng/mL (0.0-4.0) 12/09/21 12:43 CK-MB (CK-2) Rel Index 6.4 (0-4) H 12/09/21 12:43 Troponin T < 0.010 ng/mL (0.00-0.029) 12/09/21 12:43 Total Protein 6.3 g/dL (6.3-8.2) 12/09/21 12:43 Albumin 4.1 g/dL (3.9-5) 12/09/21 12:43 Albumin/Globulin Ratio 1.9 % 12/09/21 12:43 Triglycerides 102 mg/dL (2-149) 12/10/21 05:28 Cholesterol 189 mg/dL (50-199) 12/10/21 05:28 LDL Cholesterol Direct 125 mg/dL (50-130) 12/10/21 05:28 HDL Cholesterol 53 mg/dL (40-59) 12/10/21 05:28 Cholesterol/HDL Ratio 3.56 % 12/10/21 05:28 Urine Color Yellow (Yellow) 12/09/21 13:54 Urine Turbidity Clear (Clear) 12/09/21 13:54 Urine pH 8.0 (5.0-7.0) H 12/09/21 13:54 Ur Specific [place] 1.005 (1.003-1.030) 12/09/21 13:54 Urine Protein <15 mg/dl mg/dL (Negative) 12/09/21 13:54 Urine Glucose (UA) Negative mg/dL (Negative) 12/09/21 13:54 Urine Ketones Negative mg/dL (Negative) 12/09/21 13:54 Urine Blood Trace (Negative) 12/09/21 13:54 Urine Nitrite Negative (Negative) 12/09/21 13:54 Ur Reducing Substances Not Reportable 12/09/21 13:54 Urine Bilirubin Negative (Negative) 12/09/21 13:54 Urine Ictotest Not Reportable 12/09/21 13:54 Urine Urobilinogen < 2.0 mg/dL (<2.0) 12/09/21 13:54 Ur Leukocyte Esterase Negative (Negative) 12/09/21 13:54 Urine WBC (Auto) < 1.0 /HPF (0.0-6.0) 12/09/21 13:54 Urine RBC (Auto) < 1.0 /HPF (0.0-6.0) 12/09/21 13:54 Active Medications - Current Medications Current Medications: Generic Name Dose Route Start Last Admin Trade Name Freq PRN Reason Stop Dose Admin Acetaminophen 650 mg 12/09/21 15:25 Acetaminophen 325 Mg Tab PO Q4H PRN Pain, Mild (1-3) Albuterol 2.5 mg 12/09/21 15:25 Albuterol 2.5 Mg/3 Ml Nebu IH Q3HRT PRN Shortness Of Breath Aspirin 325 mg 12/10/21 10:00 12/10/21 10:45 Aspirin 325 Mg Tab PO 325 mg QDAY TIFFANY Administration Atorvastatin Calcium 40 mg 12/09/21 22:00 12/09/21 21:56 Atorvastatin 40 Mg Tab PO 40 mg QHS TIFFANY Administration Bisacodyl 10 mg 12/09/21 15:25 Bisacodyl 10 Mg Rect Supp [place] QDAY PRN Constipation Hydromorphone HCl 0.5 mg 12/09/21 15:25 Hydromorphone 0.5 Mg/0.5 Ml Inj IV Q23H PRN Pain , Severe (7-10) Magnesium Hydroxide 30 ml 12/09/21 15:25 Magnesium Hydroxide (Mom) Oral Liqd Udc PO Q4H PRN Constipation Metoclopramide HCl 10 mg 12/09/21 15:25 Metoclopramide 10 Mg Tab PO Q6H PRN Nausea And Vomiting Ondansetron HCl 4 mg 12/09/21 15:25 Ondansetron 4 Mg/2 Ml Inj IV Q8H PRN Nausea And Vomiting Oxycodone/Acetaminophen 1 tab 12/09/21 15:25 Oxycodone /Acetaminophen 5-325mg Tab PO Q6H PRN Pain, Moderate (4-6) Promethazine HCl 25 mg 12/09/21 15:25 Promethazine 25 Mg Rect Supp [place] Q6H PRN Nausea And Vomiting Sodium Chloride 10 ml 12/09/21 15:25 Sodium Chloride 0.9% 10 Ml Flush Syringe IV 12/19/21 23:59 PRN PRN LINE FLUSH
[2021-12-10] MEDS: hydroCHLOROthiazide 12.5 MG CAP PO SCH (17:32)
[2021-12-11] MEDS: hydroCHLOROthiazide 12.5 MG CAP PO SCH (09:12)
[2021-12-11] MEDS: ASPIRIN 325 MG TAB PO SCH (09:12)
--- NOTE | 2021-12-11 11:15 | Progress Note ---
Assessment and Plan Assessment and plan: #CVA (cerebral vascular accident) vs TIA rule out -initial CT head negative; repeat CT head negative -CTA of neck negative; CTA of head shows athlerosclerosis -MRI head, TTE, and carotid doppler pending -continue ASA + statin -continue neuro checks -PT/OT evaluation: recommending home health/PT #Hypertension -Per patient, she had a history of hypertension and was taking medications in the past, she has not taken the medication in years -will start amlodipine instead of HCTZ #Debility -Physical therapy consulted -Family plans for the patient to move in with them at discharge for closer observation #History of Meniere's disease -not in exacerbation, supportive care -patient with deafness, but able to read lips and communicate through writing -Outpatient neurology follow-up #Advanced care planning -Disease education conducted, care plan discussed, diagnoses discussed, prognosis discussed, patient is full code. Patient family knowledges understanding and agreement with care plan, +30 minutes. History Interval history: No acute events overnight. Patient with Daughter Cynthia at bedside. Patient reports feeling "well". She denies lightheadedness, dizziness, chest pain and shortness of breath. She has no complaints at this time. Hospitalist Physical - Physical exam Narrative exam: GENERAL: Well-developed well-nourished. In no acute distress. HEENT: Normocephalic. Atraumatic. CHEST/LUNGS: CTAB on room air HEART/CARDIOVASCULAR: RRR. No murmur, rubs or gallops appreciated. ABDOMEN: +BS. NT/ND. NEURO: No focal motor deficit. Follows all commands. MUSCULOSKELETAL: No joint effusion EXTREMITIES: No cyanosis, clubbing or edema. PSYCH: Cooperative. - Constitutional Vitals: Temp Pulse Resp BP Pulse Ox 98.0 F 74 20 120/60 95 12/11/21 08:38 12/11/21 08:49 12/11/21 08:49 12/11/21 08:49 12/11/21 10:00 General appearance: Present: mild distress HEART Score - HEART Score Troponin: Troponin T < 0.010 ng/mL (0.00-0.029) 12/09/21 12:43 Results - Labs CBC & Chem 7: 12/09/21 12:43 12/09/21 12:43 Labs: Laboratory Last Values WBC 6.7 K/mm3 (4.5-11.0) 12/09/21 12:43 RBC 4.36 M/mm3 (3.65-5.03) 12/09/21 12:43 Hgb 14.4 gm/dl (10.1-14.3) H 12/09/21 12:43 Hct 41.0 % (30.3-42.9) 12/09/21 12:43 MCV 94 fl (79-97) 12/09/21 12:43 MCH 33 pg (28-32) H 12/09/21 12:43 MCHC 35 % (30-34) H 12/09/21 12:43 RDW 13.8 % (13.2-15.2) 12/09/21 12:43 Plt Count 238 K/mm3 (140-440) 12/09/21 12:43 Lymph % (Auto) 19.1 % (13.4-35.0) 12/09/21 12:43 [place] % (Auto) 9.6 % (0.0-7.3) H 12/09/21 12:43 Eos % (Auto) 1.0 % (0.0-4.3) 12/09/21 12:43 Baso % (Auto) 0.6 % (0.0-1.8) 12/09/21 12:43 Lymph # (Auto) 1.3 K/mm3 (1.2-5.4) 12/09/21 12:43 [place] # (Auto) 0.6 K/mm3 (0.0-0.8) 12/09/21 12:43 Eos # (Auto) 0.1 K/mm3 (0.0-0.4) 12/09/21 12:43 Baso # (Auto) 0.0 K/mm3 (0.0-0.1) 12/09/21 12:43 Seg Neutrophils % 69.7 % (40.0-70.0) 12/09/21 12:43 Seg Neutrophils # 4.7 K/mm3 (1.8-7.7) 12/09/21 12:43 PT 13.8 Sec. (12.2-14.9) 12/09/21 12:43 INR 0.96 (0.87-1.13) 12/09/21 12:43 APTT 29.6 Sec. (24.2-36.6) 12/09/21 12:43 Thrombin Time 17.3 Sec. (15.1-19.6) 12/09/21 12:43 Sodium 143 mmol/L (137-145) 12/09/21 12:43 Potassium 3.1 mmol/L (3.6-5.0) L 12/09/21 12:43 Chloride 108.2 mmol/L (98-107) H 12/09/21 12:43 Carbon Dioxide 23 mmol/L (22-30) 12/09/21 12:43 Anion Gap 15 mmol/L 12/09/21 12:43 BUN 15 mg/dL (7-17) 12/09/21 12:43 Creatinine 0.6 mg/dL (0.6-1.2) 12/09/21 12:43 Estimated GFR > 60 ml/min 12/09/21 12:43 BUN/Creatinine Ratio 25 % 12/09/21 12:43 Glucose 92 mg/dL (65-100) 12/09/21 12:43 Calcium 9.0 mg/dL (8.4-10.2) 12/09/21 12:43 Total Bilirubin 0.40 mg/dL (0.1-1.2) 12/09/21 12:43 AST 13 units/L (5-40) 12/09/21 12:43 ALT 8 units/L (7-56) 12/09/21 12:43 Alkaline Phosphatase 78 units/L (35-129) 12/09/21 12:43 Total Creatine Kinase 53 units/L (30-135) 12/09/21 12:43 CK-MB (CK-2) 3.4 ng/mL (0.0-4.0) 12/09/21 12:43 CK-MB (CK-2) Rel Index 6.4 (0-4) H 12/09/21 12:43 Troponin T < 0.010 ng/mL (0.00-0.029) 12/09/21 12:43 Total Protein 6.3 g/dL (6.3-8.2) 12/09/21 12:43 Albumin 4.1 g/dL (3.9-5) 12/09/21 12:43 Albumin/Globulin Ratio 1.9 % 12/09/21 12:43 Triglycerides 102 mg/dL (2-149) 12/10/21 05:28 Cholesterol 189 mg/dL (50-199) 12/10/21 05:28 LDL Cholesterol Direct 125 mg/dL (50-130) 12/10/21 05:28 HDL Cholesterol 53 mg/dL (40-59) 12/10/21 05:28 Cholesterol/HDL Ratio 3.56 % 12/10/21 05:28 Urine Color Yellow (Yellow) 12/09/21 13:54 Urine Turbidity Clear (Clear) 12/09/21 13:54 Urine pH 8.0 (5.0-7.0) H 12/09/21 13:54 Ur Specific [place] 1.005 (1.003-1.030) 12/09/21 13:54 Urine Protein <15 mg/dl mg/dL (Negative) 12/09/21 13:54 Urine Glucose (UA) Negative mg/dL (Negative) 12/09/21 13:54 Urine Ketones Negative mg/dL (Negative) 12/09/21 13:54 Urine Blood Trace (Negative) 12/09/21 13:54 Urine Nitrite Negative (Negative) 12/09/21 13:54 Ur Reducing Substances Not Reportable 12/09/21 13:54 Urine Bilirubin Negative (Negative) 12/09/21 13:54 Urine Ictotest Not Reportable 12/09/21 13:54 Urine Urobilinogen < 2.0 mg/dL (<2.0) 12/09/21 13:54 Ur Leukocyte Esterase Negative (Negative) 12/09/21 13:54 Urine WBC (Auto) < 1.0 /HPF (0.0-6.0) 12/09/21 13:54 Urine RBC (Auto) < 1.0 /HPF (0.0-6.0) 12/09/21 13:54 Sal/IV: Voiding Method Toilet Active Medications - Current Medications Current Medications: Generic Name Dose Route Start Last Admin Trade Name Freq PRN Reason Stop Dose Admin Acetaminophen 650 mg 12/09/21 15:25 Acetaminophen 325 Mg Tab PO Q4H PRN Pain, Mild (1-3) Albuterol 2.5 mg 12/09/21 15:25 Albuterol 2.5 Mg/3 Ml Nebu IH Q3HRT PRN Shortness Of Breath Aspirin 325 mg 12/10/21 10:00 12/11/21 09:12 Aspirin 325 Mg Tab PO 325 mg QDAY TIFFANY Administration Atorvastatin Calcium 40 mg 12/09/21 22:00 12/10/21 21:22 Atorvastatin 40 Mg Tab PO 40 mg QHS TIFFANY Administration Bisacodyl 10 mg 12/09/21 15:25 Bisacodyl 10 Mg Rect Supp [place] QDAY PRN Constipation Hydrochlorothiazide 12.5 mg 12/10/21 14:00 12/11/21 09:12 Hydrochlorothiazide 12.5 Mg Cap PO Not Given QDAY TIFFANY Hydromorphone HCl 0.5 mg 12/09/21 15:25 Hydromorphone 0.5 Mg/0.5 Ml Inj IV Q23H PRN Pain , Severe (7-10) Magnesium Hydroxide 30 ml 12/09/21 15:25 Magnesium Hydroxide (Mom) Oral Liqd Udc PO Q4H PRN Constipation Metoclopramide HCl 10 mg 12/09/21 15:25 Metoclopramide 10 Mg Tab PO Q6H PRN Nausea And Vomiting Ondansetron HCl 4 mg 12/09/21 15:25 Ondansetron 4 Mg/2 Ml Inj IV Q8H PRN Nausea And Vomiting Oxycodone/Acetaminophen 1 tab 12/09/21 15:25 Oxycodone /Acetaminophen 5-325mg Tab PO Q6H PRN Pain, Moderate (4-6) Promethazine HCl 25 mg 12/09/21 15:25 Promethazine 25 Mg Rect Supp [place] Q6H PRN Nausea And Vomiting Sodium Chloride 10 ml 12/09/21 15:25 Sodium Chloride 0.9% 10 Ml Flush Syringe IV 12/19/21 23:59 PRN PRN LINE FLUSH
--- NOTE | 2021-12-11 19:29 | Electrocardiograph Report ---
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
[2021-12-12 07:08] VITALS: BP 163/73
[2021-12-12] MEDS ORDERED: amLODIPine 5 MG TAB PO SCH (10:00)
--- NOTE | 2021-12-12 10:11 | Magnetic Resonance Report ---
MR brain wo con INDICATION / CLINICAL INFORMATION: 86 years Female; CVA r/o, WEAKNESS. TECHNIQUE: Multiplanar, multisequence MR images of the brain were obtained. COMPARISON: None available. FINDINGS: BRAIN / INTRACRANIAL CONTENTS: The motion significantly degrades the image quality despite repeat stalin ging and using a fast acquisition sequences. However, there is acute to infarct oriented along the po sterior limb of the right internal capsule measuring 0.7 cm in greatest AP dimension at. There is oth erwise extensive cerebral white matter disease most notably involving periventricular regions with co nfluent findings most consistent with chronic microvascular angiopathy. The diffusion imaging reveals no further evidence of recent infarction. There is moderate cerebral atrophy with associated prominence of the ventricular system. No extra-axi al fluid collections or significant mass effect is identified. CRANIOCERVICAL JUNCTION: No significant abnormality. VASCULAR FLOW-VOIDS: No significant abnormality. ORBITS: No significant abnormality of visualized orbits. SINUSES / MASTOIDS: No significant abnormality in the visualized paranasal sinuses or mastoid air brook ls. ADDITIONAL FINDINGS: None. IMPRESSION: 1. There is a 0.7 cm acute infarct oriented along the posterior limb of the right internal capsule. 2. The study is limited by motion. However, there is otherwise moderate chronic microvascular angiopa thy and cerebral atrophy as described. Signer Name: Jose Camacho MD Signed: 12/12/2021 10:07 AM Workstation Name: [id number]
[2021-12-12] MEDS: ASPIRIN 325 MG TAB PO SCH (11:05)
--- NOTE | 2021-12-12 12:40 | Discharge Summary ---
Providers - Providers Date of Admission: 12/09/21 15:25 Date of discharge: 12/12/21 Attending physician: MARISSA FRIEDMAN MD 12/09/21 15:25 Occupational Therapy Evaluate and Treat [CONS] Routine Comment: Reason For Exam: Neuro deficits Physical Therapy Evaluation and Treat [CONS] Routine Comment: Reason For Exam: Neuro deficits Primary care physician: SALVADOR KHAN Hospitalization Reason for admission: CVA rule out Condition: Stable Hospital course: Patient is 86-year-old female with history of Mnire's disease and hypertension who presented to the emergency department after being found down by family in her home. She was found to be confused with slurred speech. Code stroke was called. Patient's symptoms improved. Initial CT head showed extensive microvascular angiopathy and moderate cerebral atrophy without evidence of acute intracranial hemorrhage. CT angio of the head showed no significant abnormality. CT angio of the head showed atherosclerotic calcification involving the proximal ICAs. Carotid Doppler showed less than 50% diameter stenosis bilaterally. Echocardiogram showed mild diastolic dysfunction with normal ejection fraction and no PFO. Patient was found down again at bedside and repeat CT head showed no findings. MRI of the brain did show a 0.7 cm acute infarct along the posterior limb of the right internal capsule. Patient was evaluated by physical therapy and cleared for home health with physical therapy. Patient was discharged home in care of her daughters. Disposition: 01 HOME / SELF CARE / HOMELESS Final Discharge Diagnosis (Prints w/discharge instructions): Acute CVA. Hypertension. Debility. History of Mnire's disease. Deafness Time spent for discharge: 40 minutes Core Measure Documentation - Palliative Care Palliative Care/ Comfort Measures: Not Applicable - Core Measures Any of the following diagnoses?: stroke - Stroke Discharge Requirements Statin for LDL = or >70 mg/dl on DC: Yes Anticoag for atrial fib/atrial flutter: Not Applicable Antithrombotic for ischemic stroke: Yes Exam - Physical Exam Narrative exam: GENERAL: Well-developed well-nourished. In no acute distress. HEENT: Normocephalic. Atraumatic. CHEST/LUNGS: CTAB on room air HEART/CARDIOVASCULAR: RRR. No murmur, rubs or gallops appreciated. ABDOMEN: +BS. NT/ND. NEURO: No focal motor deficit. Follows all commands. MUSCULOSKELETAL: No joint effusion EXTREMITIES: No cyanosis, clubbing or edema. PSYCH: Cooperative. - Constitutional Vitals: Temp Pulse Resp BP Pulse Ox 98.3 F 87 20 163/73 96 12/12/21 05:26 12/12/21 05:26 12/12/21 05:26 12/12/21 05:12/12/21 05:26 Plan Care Plan Goals: Please schedule an appointment with Dr. Khan or another primary care provider of your choosing. We have prescribed medications for you and it is important to take them every day. Make sure to get refills from your new PCP. Follow up with: SALVADOR KHAN MD [Primary Care Provider] - 7 Days Prescriptions: AtorvaSTATin [Lipitor] 40 mg PO QHS 90 Days #90 tablet amLODIPine 5 mg PO QDAY 90 Days #90 tablet Aspirin 325 mg PO QDAY 90 Days #90 tablet
== END 2021-12-12 16:10 | disposition home health service (06) | DRG 65 ==
LOC: ED 12:16 → 3A 15:25 → 4A 16:36
PROVIDERS: ADMIT Internal Medicine; ATTEND Student in an Organized Health Care Education/Training Program
DX: I63.9 Cerebral infarction, unspecified (principal); G81.94 Hemiplegia, unspecified affecting left nondominant side; I10 Essential (primary) hypertension; H81.09 Meniere's disease, unspecified ear; H91.90 Unspecified hearing loss, unspecified ear; F01.50 Vascular dementia, unspecified severity, without behavioral disturbance, psychotic disturbance, mood disturbance, and anxiety; I67.2 Cerebral atherosclerosis; R53.81 Other malaise
CPT/HCPCS: 36415; 70450; 70496; 70498; 70551; 80053; 80061; 81001; 82550; 82553; 84484; 85025; 85610; 85670; 85730; 93005; 93306; 93880; G0378; C8929; J0360; Q9967